=== PATIENT | male | born 1975 | race American Indian/Alaskan Native ===

== ENCOUNTER 2016-12-31 08:35 | Emergency (ER) | payer SELFPAY ==
[2016-12-31 09:09] LABS: Basophils % (Auto) 0.1 % (0.0-1.8); Eosinophils % (Auto) 0.5 % (0.0-4.3); Hematocrit 50.5 % (35.5-45.6); Hemoglobin 16.1 gm/dl (11.8-15.2); Mean Corpuscular HGB Conc 32 % (32-34); Mean Corpuscular Hemoglobin 29 pg (28-32); Mean Corpuscular Volume 91 fl (84-94); Platelet Count 187 K/mm3 (140-440); Red Blood Count 5.55 M/mm3 (3.65-5.03); Red Cell Distribution Width 14.7 % (13.2-15.2)
[2016-12-31 09:48] LABS: Alanine Aminotransferase 19 units/L (7-56); Albumin 4.4 g/dL (3.9-5); Albumin/Globulin Ratio 1.3 %; Alkaline Phosphatase 94 units/L (35-129); Anion Gap 18 mmol/L; Blood Urea Nitrogen 18 mg/dL (9-20); Calcium 9.3 mg/dL (8.4-10.2); Carbon Dioxide 25 mmol/L (22-30); Chloride 100.6 mmol/L (98-107); Glucose 109 mg/dL (75-100); Lipase 25 units/L (13-60); Potassium 3.7 mmol/L (3.6-5.0); Sodium 140 mmol/L (137-145); Total Protein 7.8 g/dL (6.3-8.2)
[2016-12-31] MEDS ORDERED: DILAUDID IM ONE (11:53)
[2016-12-31] MEDS ORDERED: NACL 0.9% 1000 ML 1,000 ML IV ONE (11:57)
[2016-12-31] MEDS ORDERED: ZOFRAN IV ONE (11:57)
--- NOTE | 2016-12-31 12:02 | Emergency Department Report ---
ED Abdominal Pain HPI - General Chief Complaint: Abdominal Pain Stated Complaint: ABD PAIN/HX OF PANCREATITIS Time Seen by Provider: 12/31/16 11:46 Source: patient Mode of arrival: Ambulatory Limitations: No Limitations - History of Present Illness Initial Comments: 41-year-old male presents to the emergency department complaining of abdominal pain. Patient states for the past 3 days he has been having upper abdominal pain with nausea and vomiting. Patient describes the pain as sharp. Pain radiates into his back. He denies fever or diarrhea. Patient reports a history of gastritis and pancreatitis, and states this feels the same. He does report that over the weekend he was drinking alcohol. Patient states he was seen at [facility] 2 days ago for the same. He states he was given IV medication and had a CT scan. He was diagnosed gastritis and given a prescription for Zofran, which he has not filled. There are no other complaints. MD Complaint: abdominal pain -: Gradual, days(s) (3) Location: epigastric Radiation: back Migration to: no migration Severity scale (0 -10): 6 Quality: sharp Consistency: constant Improves With: nothing Worsens With: nothing Associated Symptoms: nausea, vomiting - Related Data Previous Rx's Medication Instructions Recorded Last Taken Type HYDROcodone/APAP 7.5-325 [[place] 1 each PO Q6HR PRN #14 tablet 12/31/16 Unknown Rx 7.5/325] Allergies Allergy/AdvReac Type Severity Reaction Status Date / Time famotidine [From Pepcid] AdvReac ABD Verified 12/31/16 08:43 CRAMPING metoclopramide HCl AdvReac ABD Verified 12/31/16 08:43 [From Reglan] CRAMPING ranitidine HCl [From Zantac] AdvReac ABD Verified 12/31/16 08:43 CRAMPING ED Review of Systems ROS: Stated complaint: ABD PAIN/HX OF PANCREATITIS Other details as noted in HPI Comment: All other systems reviewed and negative Gastrointestinal: abdominal pain, nausea, vomiting ED Past Medical Hx - Past Medical History Previous Medical History?: Yes Hx Hypertension: Yes (NONCOMPLIANT WITH MEDS) Additional medical history: PANCREATITIS - Surgical History Past Surgical History?: No - Family History Family history: no significant - Social History Smoking Status: Current Every Day Smoker Substance Use Type: Alcohol, Marijuana - Medications Home Medications: Home Medications Medication Instructions Recorded Confirmed Last Taken Type HYDROcodone/APAP 7.5-325 [[place] 1 each PO Q6HR PRN #14 tablet 12/31/16 Unknown Rx 7.5/325] ED Physical Exam - General Limitations: No Limitations General appearance: alert, in no apparent distress - Head Head exam: Present: atraumatic, normocephalic - Eye Eye exam: Present: normal appearance, PERRL, EOMI - ENT ENT exam: Present: normal exam, normal orophraynx, mucous membranes moist - Neck Neck exam: Present: normal inspection, full ROM. Absent: tenderness - Respiratory Respiratory exam: Present: normal lung sounds bilaterally. Absent: respiratory distress - Cardiovascular Cardiovascular Exam: Present: regular rate, normal rhythm, normal heart sounds - GI/Abdominal GI/Abdominal exam: Present: soft, tenderness (mild diffuse tenderness to palpation), normal bowel sounds. Absent: distended, guarding, rebound - Extremities Exam Extremities exam: Present: normal inspection, full ROM. Absent: tenderness - Back Exam Back exam: Present: normal inspection, full ROM. Absent: tenderness - Neurological Exam Neurological exam: Present: alert, oriented X3. Absent: motor sensory deficit - Skin Skin exam: Present: warm, dry, intact ED Course Vital Signs 12/31/16 12/31/16 12/31/16 08:45 12:14 12:18 Temperature 98.7 F Pulse Rate 73 56 L Respiratory 16 16 Rate Blood Pressure 155/110 Blood Pressure 186/106 [Left] O2 Sat by Pulse 100 93 100 Oximetry 12/31/16 12/31/16 12/31/16 12:30 13:00 13:30 Temperature Pulse Rate Respiratory Rate Blood Pressure 162/104 153/114 185/110 Blood Pressure [Left] O2 Sat by Pulse 100 99 100 Oximetry 12/31/16 14:00 Temperature Pulse Rate Respiratory Rate Blood Pressure 188/123 Blood Pressure [Left] O2 Sat by Pulse 97 Oximetry ED Medical Decision Making - Lab Data Result diagrams: 12/31/16 08:54 12/31/16 08:54 - Medical Decision Making Lab results reviewed and discussed with the patient. Patient reports feeling better with medication. Patient will be discharged home at this time. - Differential Diagnosis gastritis, pancreatitis Critical care attestation.: If time is entered above; I have spent that time in minutes in the direct care of this critically ill patient, excluding procedure time. ED Disposition Clinical Impression: Alcoholic gastritis without hemorrhage Qualifiers: Chronicity: acute Qualified Code(s): K29.20 - Alcoholic gastritis without bleeding Disposition: DISCHARGED TO HOME OR SELFCARE Is pt being admited?: No Condition: Stable Instructions: Gastritis (ED) Prescriptions: HYDROcodone/APAP 7.5-325 [[place] 7.5/325] 1 each PO Q6HR PRN #14 tablet PRN Reason: Pain Referrals: MICHELLE MCKEON MD [Staff Physician] - 3-5 Days Time of Disposition: 14:34
[2016-12-31] MEDS ORDERED: DILAUDID IV ONE (13:48)
[2016-12-31 14:59] VITALS: BP 151/79
== END 2016-12-31 14:59 | disposition home or self-care (01) ==
LOC: ED 08:35
DX: K29.20 Alcoholic gastritis without bleeding (principal); I10 Essential (primary) hypertension; F17.200 Nicotine dependence, unspecified, uncomplicated; F12.10 Cannabis abuse, uncomplicated; Z88.8 Allergy status to other drugs, medicaments and biological substances
CPT/HCPCS: 36415; 80053; 83690; 85025; 96361; 96372; 96374; 96375; 99283; J1170; J2405; J7030

== ENCOUNTER 2020-08-08 12:34 | Inpatient (IN) | payer OTHER ==
[2020-08-08 13:36] LABS: Basophils % (Auto) 0.2 % (0.0-1.8); Eosinophils % (Auto) 0.2 % (0.0-4.3); Hematocrit 52.2 % (35.5-45.6); Hemoglobin 17.7 gm/dl (11.8-15.2); Lymphocytes # (Auto) 1.5 K/mm3 (1.2-5.4); Lymphocytes % (Auto) 11.2 % (13.4-35.0); Mean Corpuscular HGB Conc 34 % (32-34); Mean Corpuscular Volume 90 fl (84-94); Monocytes # (Auto) 0.5 K/mm3 (0.0-0.8); Monocytes % (Auto) 3.4 % (0.0-7.3); Platelet Count 253 K/mm3 (140-440); Red Blood Count 5.78 M/mm3 (3.65-5.03); Red Cell Distribution Width 14.9 % (13.2-15.2)
[2020-08-08] MEDS ORDERED: dilTIAZem 25 MG/5 ML INJ IV ONE (13:36)
--- NOTE | 2020-08-08 13:36 | Emergency Department Report ---
ED Chest Pain HPI - General Chief Complaint: Chest Pain Stated Complaint: CHEST PAIN; ABD PAIN; NAUSEA; VOMITING Time Seen by Provider: 08/08/20 12:47 Source: patient Mode of arrival: Ambulatory Limitations: No Limitations - History of Present Illness Initial Comments: This is a 45-year-old -[place] male who presents to the emergency department with a 2-day history of midsternal chest pain, shortness of breath, mid to upper back pain, and upper abdominal pain that he describes as a burning sensation. The patient has a history of pancreatitis and gastritis in the past. He has not taken anything for symptoms prior to presentation. He is a former smoker. He has not drink any alcohol in the past year. He has a history of hypertension but is not on any medications. He does not have a primary care physician. No recent travel or sick contacts at home. No known aggravating or alleviating factors. The patient also has been having some nausea and vomiting. The patient says that "when I start vomiting I feel short of breath." Severity scale (0 -10): 10 - Related Data Previous Rx's Medication Instructions Recorded Last Taken Type HYDROcodone/APAP 7.5-325 [[place] 1 each PO Q6HR PRN #14 tablet 12/31/16 Unknown Rx 7.5/325] Allergies Allergy/AdvReac Type Severity Reaction Status Date / Time famotidine [From Pepcid] AdvReac ABD Verified 08/08/20 12:36 CRAMPING metoclopramide HCl AdvReac ABD Verified 08/08/20 12:36 [From Reglan] CRAMPING ranitidine HCl [From Zantac] AdvReac ABD Verified 08/08/20 12:36 CRAMPING Heart Score - HEART Score History: Slightly suspicious EKG: Non-specific Age: < 45 Risk factors: 1-2 risk factors Troponin: < normal limit HEART Score: 2 - Critical Actions Critical Actions: 0-3 pts:0.9-1.7%risk of adverse cardiac event.Candidate for discharge ED Review of Systems ROS: Stated complaint: CHEST PAIN; ABD PAIN; NAUSEA; VOMITING Other details as noted in HPI Comment: All other systems reviewed and negative Constitutional: denies: chills, fever Eyes: denies: eye pain, vision change ENT: denies: ear pain, throat pain Respiratory: shortness of breath. denies: cough Cardiovascular: chest pain. denies: edema Gastrointestinal: abdominal pain, nausea, vomiting Genitourinary: denies: dysuria, discharge Musculoskeletal: denies: back pain, arthralgia Skin: denies: rash, lesions Neurological: denies: headache, weakness ED Past Medical Hx - Past Medical History Hx Hypertension: Yes (NONCOMPLIANT WITH MEDS) Additional medical history: PANCREATITIS GASRTITIS - Surgical History Past Surgical History?: No - Social History Smoking Status: Current Every Day Smoker Substance Use Type: Alcohol, Marijuana - Medications Home Medications: Home Medications Medication Instructions Recorded Confirmed Last Taken Type HYDROcodone/APAP 7.5-325 [[place] 1 each PO Q6HR PRN #14 tablet 12/31/16 Unknown Rx 7.5/325] ED Physical Exam - General Limitations: No Limitations - Other Other exam information: GENERAL: The patient is well-developed well-nourished. HENT: Normocephalic. Atraumatic. Patient has moist mucous membranes. EYES: Extraocular motions are intact. NECK: Supple. Trachea is midline. CHEST/LUNGS: Clear to auscultation. There is no respiratory distress noted. HEART/CARDIOVASCULAR: Irregular rhythm. There is moderate tachycardia. No murmur. ABDOMEN: Abdomen is soft. Unable to reproduce abdominal tenderness to palpation. No guarding. Patient has normal bowel sounds. There is no abdominal distention. SKIN: Skin is warm and dry. NEURO: The patient is awake, alert, and oriented. The patient is cooperative. The patient has no focal neurologic deficits. Normal speech. MUSCULOSKELETAL: There is no tenderness or deformity. There is no limitation range of motion. ED Course Vital Signs 08/08/20 08/08/20 12:40 13:55 Temperature 98.4 F Pulse Rate 60 178 H Respiratory 20 Rate Blood Pressure 137/95 Blood Pressure 152/60 [Right] O2 Sat by Pulse 96 Oximetry TATI score - Tati Score Age > 65: (0) No Aspirin use within the Past 7 Days: (0) No 3 or more CAD Risk Factors: (0) No 2 or more Angina events in past 24 hrs: (1) Yes Known CAD with more than 50% Stenosis: (0) No Elevated Cardiac Markers: (0) No ST Deviation Greater than 0.5mm: (0) No TATI Score: 1 ED Medical Decision Making - Lab Data Result diagrams: 08/08/20 13:15 08/08/20 13:15 - EKG Data -: EKG Interpreted by Me - EKG Data When compared to previous EKG there are: previous EKG unavailable Interpretation: other (Atrial fibrillation with a rate of 134 bpm, PVCs, normal axis, LVH. No ST elevation MN) - Radiology Data Radiology results: image reviewed interpreted by me: Chest x-ray does not show any acute process. There are no pleural effusions, obvious pneumonia and there is no pneumothorax. No significant cardiomegaly. Abdominal x-ray shows nonspecific nonobstructive bowel gas. - Medical Decision Making This patient presents to the emergency department with complaint of chest pain, upper abdominal pain, back pain, nausea with vomiting, and some occasional shortness of breath. From the EKG done through triage, the patient was found to be in atrial fibrillation with RVR and this is new onset. The patient was immediately brought back to the emergency department and placed on the monitor. He was given a dose of IV Cardizem which did help with rate control but the patient did not convert back to sinus rhythm. Chest and abdominal x-rays were done that did not show any acute processes. The patient's labs have been mostly unremarkable except for some mild thrombocytosis and mild leukocytosis. Negative first troponin. Negative D-dimer. Cardiology was contacted and consulted and saw the patient in the emergency department. The patient has been started on a heparin drip secondary to the atrial fibrillation. He has been accepted for admission by the hospitalist, Dr. Galindo. Critical Care Time: Yes Critical care time in (mins) excluding proc time.: 35 Critical care attestation.: If time is entered above; I have spent that time in minutes in the direct care of this critically ill patient, excluding procedure time. Critical care time was spent on this patient in doing his initial evaluation, multiple reevaluations, ordering and interpretation of labs and imaging, IV Cardizem for rate control, heparin drip, discussion with cardiology, and multiple discussions with the patient. Critical Care Time: 35 minutes ED Disposition Clinical Impression: New onset atrial fibrillation, Atrial fibrillation with RVR, History of gastritis, Acute chest pain Disposition: OP ADMIT IP TO THIS HOSP Is pt being admited?: Yes Condition: Serious Instructions: Chest Pain (ED) Time of Disposition: 15:59
[2020-08-08] MEDS ORDERED: ALUM-MAG HYDROXIDE-SIMETHICONE 200-200-20MG/5ML ORAL LIQD 30 ML PO ONE (13:51)
[2020-08-08] MEDS ORDERED: SODIUM CHLORIDE 0.9% 1000 ML 1,000 ML IV ONE (13:51)
[2020-08-08] MEDS ORDERED: LIDOCAINE VISCOUS 2% 15 ML ORAL LIQD PO ONE (13:51)
[2020-08-08 13:58] LABS: Alanine Aminotransferase 28 units/L (7-56); Albumin 4.5 g/dL (3.9-5); BUN/Creatinine Ratio 15; Blood Urea Nitrogen 16 mg/dL (9-20); Calcium 9.6 mg/dL (8.4-10.2); Hemolysis Index 23
[2020-08-08 14:01] LABS: INR 1.04 (0.87-1.13)
--- NOTE | 2020-08-08 14:07 | XRay Report ---
Abdominal series with chest x-ray one view HISTORY: Chest pain, abdominal pain COMPARISON: None. IMPRESSION: Single view of the chest demonstrates normal heart and mediastinal structures and clear l ungs. Supine and upright views the abdomen demonstrate scattered small air-fluid levels throughout th e abdomen suggesting gastroenteritis or mild ileus. No evidence for obstruction or free air. No patho logic calcifications. Signer Name: Henry Barnard Jr, MD Signed: 08/08/2020 2:02 PM Workstation Name: [id number]
[2020-08-08] MEDS ORDERED: HEPARIN 10,000 UNITS/10 ML VIAL IV ONE (14:12)
[2020-08-08] MEDS ORDERED: fentaNYL 100 MCG/2 ML INJ IV ONE (14:15)
[2020-08-08] MEDS ORDERED: ONDANSETRON 4 MG/2 ML INJ IV ONE (14:15)
--- NOTE | 2020-08-08 14:33 | Consultation ---
History of Present Illness Consult date: 08/08/20 Requesting physician: FADY DRAPER Consult reason: atrial fibrillation History of present illness: The pt is a 45-year-old male with a past medical history of HTN (takes amlodipine and HCTZ at home) and gastritis. He is previously unknown to our practice. He presented with c/o abdominal pain with nausea and vomiting for 3 days prior to arrival. He also states he has not had a bowel movement in 2 days. He reports some burning epigastric pain which is associated with nausea and vomiting. Following arrival to ED, he was found to be in AFib RVR and thus cardiology has been consulted. Pt was given IV cardizem bolus, HR 115-120s on evaluation, BPs elevated. Pt denies any palpitations, diaphoresis, dizziness or syncope. He admits to occasional marijuana use, denies any illicit drug use or ETOH use. He denies any known prior cardiac issues or cardiac w/u. Past History Past Medical History: hypertension, other (gastritis) Medications and Allergies Allergies Allergy/AdvReac Type Severity Reaction Status Date / Time famotidine [From Pepcid] AdvReac ABD Verified 08/08/20 12:36 CRAMPING metoclopramide HCl AdvReac ABD Verified 08/08/20 12:36 [From Reglan] CRAMPING ranitidine HCl [From Zantac] AdvReac ABD Verified 08/08/20 12:36 CRAMPING Home Medications Medication Instructions Recorded Confirmed Last Taken Type HYDROcodone/APAP 7.5-325 [[place] 1 each PO Q6HR PRN #14 tablet 12/31/16 Unknown Rx 7.5/325] Active Meds: Active Medications Sodium Chloride (Nacl 0.9% 1000 Ml) 1,000 mls @ 125 mls/hr IV ONCE ONE Stop: 08/08/20 21:50 Last Admin: 08/08/20 13:57 Dose: 125 mls/hr Documented by: Review of Systems Constitutional: no weight loss, no weight gain, no fever, no chills, no sweats Ears, nose, mouth and throat: no ear pain, no nose pain, no sinus pressure, no sinus pain Cardiovascular: chest pain, high blood pressure, no orthopnea, no palpitations, no rapid/irregular heart beat, no edema, no syncope, no lightheadedness, no shortness of breath, no dyspnea on exertion Respiratory: no cough, no shortness of breath, no dyspnea on exertion, no congestion, no wheezing, no pain on inspiration Gastrointestinal: abdominal pain, nausea, vomiting, constipation, no diarrhea, no hematemesis, no coffee ground emesis Genitourinary Male: no dysuria, no hematuria, no flank pain, no discharge, no urinary frequency, no urinary hesitancy Musculoskeletal: no neck stiffness, no neck pain, no shooting arm pain, no arm numbness/tingling, no low back pain, no shooting leg pain Integumentary: no rash, no pruritis, no redness, no sores, no wounds Neurological: no head injury, no paralysis, no weakness, no parathesias, no numbness, no tingling, no seizures, no syncope Psychiatric: no anxiety Endocrine: no cold intolerance, no heat intolerance Hematologic/Lymphatic: no easy bruising, no easy bleeding Allergic/Immunologic: no urticaria Physical Examination Vital Signs Temp Pulse Resp BP Pulse Ox 98.4 F 60 20 152/60 96 08/08/20 12:40 08/08/20 12:40 08/08/20 12:40 08/08/20 12:40 08/08/20 12:40 General appearance: no acute distress HEENT: Positive: PERRL, Normocephaly, Mucus Membranes Moist Neck: Positive: neck supple, trachea midline Cardiac: Positive: irregularly irregular, S1/S2, Tachycardia Lungs: Positive: Decreased Breath Sounds Neuro: Positive: Grossly Intact Abdomen: Positive: Active Bowel Sounds Skin: Negative: Rash Musculoskeletal: No Pain Extremities: Absent: edema Results 08/08/20 13:15 08/08/20 13:15 Cardiac Enzymes 08/08/20 Range/Units 13:15 AST 17 (5-40) units/L Coagulation 08/08/20 Range/Units 13:15 PT 13.5 (12.2-14.9) Sec. INR 1.04 (0.87-1.13) CBC 08/08/20 Range/Units 13:15 WBC 13.4 H (4.5-11.0) K/mm3 RBC 5.78 H (3.65-5.03) M/mm3 Hgb 17.7 H (11.8-15.2) gm/dl Hct 52.2 H (35.5-45.6) % Plt Count 253 (140-440) K/mm3 Lymph # (Auto) 1.5 (1.2-5.4) K/mm3 [place] # (Auto) 0.5 (0.0-0.8) K/mm3 Eos # (Auto) 0.0 (0.0-0.4) K/mm3 Baso # (Auto) 0.0 (0.0-0.1) K/mm3 Comprehensive Metabolic Panel 08/08/20 Range/Units 13:15 Sodium 136 L (137-145) mmol/L Potassium 3.8 (3.6-5.0) mmol/L Chloride 97.5 L (98-107) mmol/L Carbon Dioxide 25 (22-30) mmol/L BUN 16 (9-20) mg/dL Creatinine 1.1 (0.8-1.3) mg/dL Glucose 165 H (75-100) mg/dL Calcium 9.6 (8.4-10.2) mg/dL AST 17 (5-40) units/L ALT 28 (7-56) units/L Alkaline Phosphatase 103 (35-129) units/L Total Protein 7.6 (6.3-8.2) g/dL Albumin 4.5 (3.9-5) g/dL - Imaging and Cardiology Echo: pending EKG: report reviewed, image reviewed EKG interpretations - Telemetry EKG Rhythm: Atrial Fibrillation - EKG Supraventricular dysrhythmia: atrial fibrillation Assessment and Plan Pt presents with apparent new onset AFib RVR. Labwork unremarkable thus far, DDimer WNL, TSH WNL. HR improving s/p IV cardizem bolus. Initiate PO cardizem - if pt unable to tolerate PO meds due to n/v then recommend initiation of cardizem gtt for HR optimization. Cont Eliquis per primary team. Obtain tte. Management of n/v per primary team. Will follow. The patient has been seen in conjunction with Dr. Aubrey Buitrago who agrees with the - Patient Problems (1) Atrial fibrillation with RVR Current Visit: Yes Status: Acute (2) HTN (hypertension) Current Visit: Yes Status: Chronic (3) Nausea and vomiting Current Visit: Yes Status: Acute (4) History of gastritis Current Visit: Yes Status: Chronic
[2020-08-08] MEDS ORDERED: ALBUTEROL 2.5 MG/3 ML NEBU IH PRN (14:47)
[2020-08-08] MEDS ORDERED: ACETAMINOPHEN 325 MG TAB PO PRN (14:47)
--- NOTE | 2020-08-08 14:47 | History and Physical Report ---
History of Present Illness Chief complaint: My chest is burning History of present illness: 45 YO Male with HTN, GERD, Nicotine Dependence presents to ED for evaluation. Patient reports that he has experienced chest discomfort over the past 1 day with persistently worsening symptoms over the same timeframe. Patient knowledges "feeling like his heart is beating fast". Patient also acknowledges a burning sensation in the area localized by the patient as the epigastric area over the past 2 days. Patient acknowledges concomitant nausea, as well as several episodes of vomiting. Patient transported to [facility] via private vehicle for further care and evaluation of the aforementioned symptoms. Patient seen and evaluated in the emergency department. All lab and imaging studies reviewed. Patient underwent routine EKG and was found to have atrial fibrillation complicated by rapid ventricular response with a heart rate in the 120s. Patient treated with Cardizem bolus with decrease in heart rate to around 100 bpm. Patient admitted to telemetry due to increased risk of worsening symptoms and initiated on therapeutic anticoagulation. Cardiology team consulted in ED. Patient found to have a [id number] score:1. Patient denies fever, chills, chest pain, productive cough, skin rash, recent ill contacts, i ngestion of [id number] supplements, herbal medications, or known ill contacts, or known exposure to COVID-19. All medication listed at time of admission has been reconciled. No prior admission for review. Past History Past Medical History: hypertension, other (gastritis) Past Surgical History: No surgical history, Other (Reviewed) Social history: smoking Family history: hypertension Medications and Allergies Allergies Allergy/AdvReac Type Severity Reaction Status Date / Time famotidine [From Pepcid] AdvReac ABD Verified 08/08/20 12:36 CRAMPING metoclopramide HCl AdvReac ABD Verified 08/08/20 12:36 [From Reglan] CRAMPING ranitidine HCl [From Zantac] AdvReac ABD Verified 08/08/20 12:36 CRAMPING Home Medications Medication Instructions Recorded Confirmed Last Taken Type HYDROcodone/APAP 7.5-325 [[place] 1 each PO Q6HR PRN #14 tablet 12/31/16 Unknown Rx 7.5/325] Active Meds: Active Medications Apixaban (Apixaban 5 Mg Tab) 5 mg PO Q12HR [facility]; Protocol Stop: 08/10/20 23:59 Diltiazem HCl (Diltiazem 90 Mg Tab) 90 mg PO Q6H SCOTT Sodium Chloride (Nacl 0.9% 1000 Ml) 1,000 mls @ 125 mls/hr IV ONCE ONE Stop: 08/08/20 21:50 Last Admin: 08/08/20 13:57 Dose: 125 mls/hr Documented by: Review of Systems Constitutional: no weight loss, no weight gain, no fever, no chills Ears, nose, mouth and throat: no ear pain, no ear discharge, no tinnitis, no nasal congestion, no nasal discharge Cardiovascular: palpitations, no chest pain, no edema, no syncope Respiratory: no cough, no cough with sputum, no excessive sputum, no hemoptysis Gastrointestinal: nausea, vomiting, no abdominal pain, no diarrhea, no change in bowel habits, no BRBPR, no melena, no hematochezia Genitourinary Male: no hematuria, no flank pain, no discharge, no urinary frequency, no urinary hesitancy Rectal: no pain, no incontinence, no bleeding Musculoskeletal: no neck stiffness, no neck pain, no shooting arm pain, no arm numbness/tingling, no low back pain, no shooting leg pain Integumentary: no rash, no pruritis, no redness, no sores, no wounds Neurological: no transient paralysis, no paralysis, no weakness, no numbness, no tingling Psychiatric: no anxiety, no memory loss, no change in sleep habits, no sleep disturbances, no hypersomnia, no change in libido, no disorientation Endocrine: no cold intolerance, no heat intolerance, no excessive thirst, no polyuria, no nocturia, no excessive sweating, no flushing Hematologic/Lymphatic: no easy bruising, no easy bleeding Allergic/Immunologic: no urticaria, no allergic rhinitis Exam - Constitutional Vitals: Temp Pulse Resp BP Pulse Ox 98.4 F 178 H 20 137/95 96 08/08/20 12:40 08/08/20 13:55 08/08/20 12:40 08/08/20 13:55 08/08/20 12:40 General appearance: Present: mild distress - EENT Eyes: Present: PERRL ENT: hearing intact, clear oral mucosa - Neck Neck: Present: supple, normal ROM - Respiratory Respiratory effort: normal Respiratory: bilateral: CTA - Cardiovascular Rhythm: other (Tachycardia) Heart Sounds: Present: S1 & S2. Absent: rub, click - Extremities Extremities: pulses symmetrical, No edema Peripheral Pulses: within normal limits - Abdominal General gastrointestinal: Present: soft, non-tender, non-distended, normal bowel sounds Male genitourinary: Present: normal - Integumentary Integumentary: Present: clear, warm, dry - Musculoskeletal Musculoskeletal: gait normal, strength equal bilaterally - Psychiatric Psychiatric: appropriate mood/affect, intact judgment & insight - Neurologic Neurologic: CNII-XII intact, moves all extremities HEART Score - HEART Score Troponin: WBC 13.4 K/mm3 (4.5-11.0) H 08/08/20 13:15 RBC 5.78 M/mm3 (3.65-5.03) H 08/08/20 13:15 Hgb 17.7 gm/dl (11.8-15.2) H 08/08/20 13:15 Hct 52.2 % (35.5-45.6) H 08/08/20 13:15 MCV 90 fl (84-94) 08/08/20 13:15 MCH 31 pg (28-32) 08/08/20 13:15 MCHC 34 % (32-34) 08/08/20 13:15 RDW 14.9 % (13.2-15.2) 08/08/20 13:15 Plt Count 253 K/mm3 (140-440) 08/08/20 13:15 Lymph % (Auto) 11.2 % (13.4-35.0) L 08/08/20 13:15 [place] % (Auto) 3.4 % (0.0-7.3) 08/08/20 13:15 Eos % (Auto) 0.2 % (0.0-4.3) 08/08/20 13:15 Baso % (Auto) 0.2 % (0.0-1.8) 08/08/20 13:15 Lymph # (Auto) 1.5 K/mm3 (1.2-5.4) 08/08/20 13:15 [place] # (Auto) 0.5 K/mm3 (0.0-0.8) 08/08/20 13:15 Eos # (Auto) 0.0 K/mm3 (0.0-0.4) 08/08/20 13:15 Baso # (Auto) 0.0 K/mm3 (0.0-0.1) 08/08/20 13:15 Seg Neutrophils % 85.0 % (40.0-70.0) H 08/08/20 13:15 Seg Neutrophils # 11.4 K/mm3 (1.8-7.7) H 08/08/20 13:15 PT 13.5 Sec. (12.2-14.9) 08/08/20 13:15 INR 1.04 (0.87-1.13) 08/08/20 13:15 D-Dimer < 135.00 ng/mlDDU (0-234) 08/08/20 Unknown Sodium 136 mmol/L (137-145) L 08/08/20 13:15 Potassium 3.8 mmol/L (3.6-5.0) 08/08/20 13:15 Chloride 97.5 mmol/L (98-107) L 08/08/20 13:15 Carbon Dioxide 25 mmol/L (22-30) 08/08/20 13:15 Anion Gap 17 mmol/L 08/08/20 13:15 BUN 16 mg/dL (9-20) 08/08/20 13:15 Creatinine 1.1 mg/dL (0.8-1.3) 08/08/20 13:15 Estimated GFR > 60 ml/min 08/08/20 13:15 BUN/Creatinine Ratio 15 % 08/08/20 13:15 Glucose 165 mg/dL (75-100) H 08/08/20 13:15 Calcium 9.6 mg/dL (8.4-10.2) 08/08/20 13:15 Total Bilirubin 0.90 mg/dL (0.1-1.2) 08/08/20 13:15 AST 17 units/L (5-40) 08/08/20 13:15 ALT 28 units/L (7-56) 08/08/20 13:15 Alkaline Phosphatase 103 units/L (35-129) 08/08/20 13:15 Troponin T < 0.010 ng/mL (0.00-0.029) 08/08/20 13:15 Total Protein 7.6 g/dL (6.3-8.2) 08/08/20 13:15 Albumin 4.5 g/dL (3.9-5) 08/08/20 13:15 Albumin/Globulin Ratio 1.5 % 08/08/20 13:15 TSH 1.120 mlU/mL (0.270-4.200) 08/08/20 13:15 Results - Labs CBC & Chem 7: 08/08/20 13:15 08/08/20 13:15 Labs: Abnormal lab results 08/08/20 08/08/20 Range/Units 13:15 13:15 WBC 13.4 H (4.5-11.0) K/mm3 RBC 5.78 H (3.65-5.03) M/mm3 Hgb 17.7 H (11.8-15.2) gm/dl Hct 52.2 H (35.5-45.6) % Lymph % (Auto) 11.2 L (13.4-35.0) % Seg Neutrophils % 85.0 H (40.0-70.0) % Seg Neutrophils # 11.4 H (1.8-7.7) K/mm3 Sodium 136 L (137-145) mmol/L Chloride 97.5 L (98-107) mmol/L Glucose 165 H (75-100) mg/dL Assessment and Plan - Patient Problems (1) Atrial fibrillation with RVR Current Visit: Yes Status: Acute Plan to address problem: Cardiology team consulted in ED, patient treated with Cardizem bolus with n ormalization of heart rate, patient initiated on therapeutic anticoagulation with Eliquis, further care and evaluation as per cardiology team. Echocardiogram ordered and is pending at time of admission. Urine drug screen pending at time of admission. (2) Gastroesophageal reflux disease Current Visit: Yes Status: Acute Plan to address problem: PPI therapy, supportive care. (3) HTN (hypertension) Current Visit: Yes Status: Chronic Qualifiers: Hypertension type: essential hypertension Qualified Code(s): I10 - Essential (primary) hypertension Plan to address problem: Monitor blood pressure every shift, continue medical management. (4) DVT prophylaxis Current Visit: Yes Status: Acute Plan to address problem: SCD to bilateral lower extremities while in bed, continue therapeutic anticoagulation.
[2020-08-08] MEDS ORDERED: HEPARIN/ 0.45% NACL DRIP 25,000 UNIT/500 ML BAG IV SCH (15:00)
[2020-08-08 16:28] LABS: Amphetamine Screen,Urine Negative; Benzodiazepines Screen,Urine Negative; Cocaine Screen,Urine Negative; Methadone Screen,Urine Negative; Opiate Screen,Urine Negative
[2020-08-08 16:39] LABS: Cannabinoid Screen,Urine Positive
[2020-08-08] MEDS: MORPHINE 4 MG/1 ML INJ IV PRN ×2 (17:08→21:20)
[2020-08-08] MEDS: ONDANSETRON 4 MG/2 ML INJ IV PRN (20:07)
[2020-08-08] MEDS: APIXABAN 5 MG TAB PO SCH (21:38)
[2020-08-09] MEDS: MORPHINE 4 MG/1 ML INJ IV PRN ×6 (01:27→21:51)
[2020-08-09] MEDS: ONDANSETRON 4 MG/2 ML INJ IV PRN ×3 (04:58→20:10)
--- NOTE | 2020-08-09 09:37 | Progress Note ---
Assessment and Plan Assessment and plan: Atrial fibrillation with RVR. Cardiology consultation pending. Continue Cardizem and Eliquis per cardiology. Follow-up echocardiogram. Check TSH. Hypertension. Continue antihypertensive medications. Abdominal pain/N/V. Check CT scan of the abdomen for further evaluation. Consider GI consultation. Etiology likely secondary to gastritis. PPI daily History Interval history: No new issues overnight. Hospitalist Physical - Constitutional Vitals: Temp Pulse Resp BP Pulse Ox 99.7 F H 60 18 123/73 97 08/09/20 08:00 08/09/20 08:26 08/09/20 08:00 08/09/20 08:26 08/09/20 08:00 General appearance: Present: no acute distress - EENT Eyes: Present: PERRL, EOM intact ENT: hearing intact, clear oral mucosa, dentition normal - Neck Neck: Present: supple, normal ROM - Respiratory Respiratory effort: normal Respiratory: bilateral: CTA - Cardiovascular Rhythm: regular Heart Sounds: Present: S1 & S2. Absent: gallop, rub - Extremities Extremities: no ischemia, No edema, Full ROM - Abdominal General gastrointestinal: soft, non-tender, non-distended, normal bowel sounds - Integumentary Integumentary: Present: clear, warm, dry - Neurologic Neurologic: CNII-XII intact, moves all extremities HEART Score - HEART Score EKG: Non-specific Age: < 45 Risk factors: 1-2 risk factors Troponin: Troponin T < 0.010 ng/mL (0.00-0.029) 08/08/20 21:19 Troponin: < normal limit - Critical Actions Critical Actions: 0-3 pts:0.9-1.7%risk of adverse cardiac event.Candidate for discharge Results - Labs CBC & Chem 7: 08/08/20 13:15 08/08/20 13:15 Labs: Laboratory Last Values WBC 13.4 K/mm3 (4.5-11.0) H 08/08/20 13:15 RBC 5.78 M/mm3 (3.65-5.03) H 08/08/20 13:15 Hgb 17.7 gm/dl (11.8-15.2) H 08/08/20 13:15 Hct 52.2 % (35.5-45.6) H 08/08/20 13:15 MCV 90 fl (84-94) 08/08/20 13:15 MCH 31 pg (28-32) 08/08/20 13:15 MCHC 34 % (32-34) 08/08/20 13:15 RDW 14.9 % (13.2-15.2) 08/08/20 13:15 Plt Count 253 K/mm3 (140-440) 08/08/20 13:15 Lymph % (Auto) 11.2 % (13.4-35.0) L 08/08/20 13:15 [place] % (Auto) 3.4 % (0.0-7.3) 08/08/20 13:15 Eos % (Auto) 0.2 % (0.0-4.3) 08/08/20 13:15 Baso % (Auto) 0.2 % (0.0-1.8) 08/08/20 13:15 Lymph # (Auto) 1.5 K/mm3 (1.2-5.4) 08/08/20 13:15 [place] # (Auto) 0.5 K/mm3 (0.0-0.8) 08/08/20 13:15 Eos # (Auto) 0.0 K/mm3 (0.0-0.4) 08/08/20 13:15 Baso # (Auto) 0.0 K/mm3 (0.0-0.1) 08/08/20 13:15 Seg Neutrophils % 85.0 % (40.0-70.0) H 08/08/20 13:15 Seg Neutrophils # 11.4 K/mm3 (1.8-7.7) H 08/08/20 13:15 PT 13.5 Sec. (12.2-14.9) 08/08/20 13:15 INR 1.04 (0.87-1.13) 08/08/20 13:15 D-Dimer < 135.00 ng/mlDDU (0-234) 08/08/20 Unknown Sodium 136 mmol/L (137-145) L 08/08/20 13:15 Potassium 3.8 mmol/L (3.6-5.0) 08/08/20 13:15 Chloride 97.5 mmol/L (98-107) L 08/08/20 13:15 Carbon Dioxide 25 mmol/L (22-30) 08/08/20 13:15 Anion Gap 17 mmol/L 08/08/20 13:15 BUN 16 mg/dL (9-20) 08/08/20 13:15 Creatinine 1.1 mg/dL (0.8-1.3) 08/08/20 13:15 Estimated GFR > 60 ml/min 08/08/20 13:15 BUN/Creatinine Ratio 15 % 08/08/20 13:15 Glucose 165 mg/dL (75-100) H 08/08/20 13:15 Calcium 9.6 mg/dL (8.4-10.2) 08/08/20 13:15 Total Bilirubin 0.90 mg/dL (0.1-1.2) 08/08/20 13:15 AST 17 units/L (5-40) 08/08/20 13:15 ALT 28 units/L (7-56) 08/08/20 13:15 Alkaline Phosphatase 103 units/L (35-129) 08/08/20 13:15 Troponin T < 0.010 ng/mL (0.00-0.029) 08/08/20 21:19 Total Protein 7.6 g/dL (6.3-8.2) 08/08/20 13:15 Albumin 4.5 g/dL (3.9-5) 08/08/20 13:15 Albumin/Globulin Ratio 1.5 % 08/08/20 13:15 TSH 1.120 mlU/mL (0.270-4.200) 08/08/20 13:15 Urine Opiates Screen Negative 08/08/20 15:19 Urine Methadone Screen Negative 08/08/20 15:19 Ur Barbiturates Screen Negative 08/08/20 15:19 Ur Phencyclidine Scrn Negative 08/08/20 15:19 Ur Amphetamines Screen Negative 08/08/20 15:19 U Benzodiazepines Scrn Negative 08/08/20 15:19 Urine Cocaine Screen Negative 08/08/20 15:19 U Marijuana (THC) Screen Positive 08/08/20 15:19 Drugs of Abuse Note Disclamer 08/08/20 15:19 Peña/IV: Voiding Method Toilet IV Catheter Type [Right Upper Peripheral IV arm] IV Catheter Type [Right Wrist] Peripheral IV Active Medications - Current Medications Current Medications: Generic Name Dose Route Start Last Admin Trade Name Freq PRN Reason Stop Dose Admin Acetaminophen 650 mg 08/08/20 14:47 Acetaminophen 325 Mg Tab PO Q4H PRN Pain MILD(1-3)/Fever >100.5/CROSS Albuterol 2.5 mg 08/08/20 14:47 Albuterol 2.5 Mg/3 Ml Nebu IH Q4HRT PRN Shortness Of Breath Apixaban 5 mg 08/08/20 22:00 08/08/20 21:38 Apixaban 5 Mg Tab PO 08/10/20 23:59 5 mg Q12HR SCOTT Administration Protocol Diltiazem HCl 90 mg 08/08/20 14:35 08/09/20 08:26 Diltiazem 90 Mg Tab PO 90 mg Q6H SCOTT Administration Morphine Sulfate 4 mg 08/08/20 16:53 08/09/20 05:58 Morphine 4 Mg/1 Ml Inj IV 4 mg Q4H PRN Administration Pain , Severe (7-10) Ondansetron HCl 4 mg 08/08/20 14:47 08/09/20 04:58 Ondansetron 4 Mg/2 Ml Inj IV 4 mg Q8H PRN Administration Nausea And Vomiting Sodium Chloride 10 ml 08/08/20 22:00 08/08/20 21:38 Sodium Chloride 0.9% 10 Ml Flush Syringe IV 10 ml BID SCOTT Administration Sodium Chloride 10 ml 08/08/20 14:47 08/09/20 01:27 Sodium Chloride 0.9% 10 Ml Flush Syringe IV 10 ml PRN PRN Administration LINE FLUSH
[2020-08-09] MEDS: APIXABAN 5 MG TAB PO SCH ×2 (09:42→21:04)
--- NOTE | 2020-08-09 10:10 | Cat Scan Report ---
CT ABDOMEN AND PELVIS WITHOUT CONTRAST HISTORY: abd pain, n/v COMPARISON: Abdominal series performed yesterday TECHNIQUE: Axial CT images were obtained through the abdomen and pelvis without IV contrast. Sagittal and coronal reformatted images. All CT scans at this location are performed using CT dose reduction for ALARA by means of automated exposure control. FINDINGS: CT ABDOMEN: Lung Bases: Clear. Liver: No significant abnormality. Biliary: No significant abnormality. Spleen: No significant abnormality. Unenlarged. Pancreas: No significant abnormality. Adrenals: No significant abnormality. Kidneys: Bilateral nephrolithiasis is identified. There are 2 small stones at the inferior pole of th e right kidney measuring up to 3 mm. There are approximately 5 or 6 stones scattered throughout the l eft kidney measuring up to 3 mm. No ureteral stones or hydronephrosis. 1 cm cyst is suspected at the superior pole of the left kidney. Lymphatics: No lymphadenopathy. Vasculature: No significant abnormality. Bowel/Peritoneum: No significant abnormality. No free air. No free fluid. Normal appendix. CT PELVIS: : No significant abnormality. Osseous Structures: No significant abnormality. Additional Findings: None IMPRESSION: Bilateral nephrolithiasis, left greater than right. No hydronephrosis. Signer Name: Henry Barnard Jr, MD Signed: 08/09/2020 10:06 AM Workstation Name: [id number]
--- NOTE | 2020-08-09 11:02 | Progress Note ---
Assessment and Plan preliminary tte images show normal EF, no significant abnormalities. Currently stable cardiac status. Pt may discharge from cardiology standpoint. At discharge, recommend Cardizem CD 240mg daily and cont Eliquis. Will plan for stress testing as OP as pt has no prior ischemic evaluation on record. Recommend follow up in our office with Dr. Aubrey Buitrago within 2 weeks ([phone]). The patient has been seen in conjunction with Dr. Aubrey Buitrago who agrees with the - Patient Problems (1) Atrial fibrillation with RVR Current Visit: Yes Status: Acute (2) HTN (hypertension) Current Visit: Yes Status: Chronic Qualifiers: Hypertension type: essential hypertension Qualified Code(s): I10 - Essential (primary) hypertension (3) Nausea and vomiting Current Visit: Yes Status: Acute (4) History of gastritis Current Visit: Yes Status: Chronic Subjective Date of service: 08/09/20 Principal diagnosis: AFib Interval history: NAD. tele reviewed - in AFib HR 70s. Objective Last Vital Signs Temp 99.7 F H 08/09/20 08:00 Pulse 89 08/09/20 09:01 Resp 19 08/09/20 09:01 BP 123/73 08/09/20 08:26 Pulse Ox 97 08/09/20 08:00 - Physical Examination General: No Apparent Distress HEENT: Positive: PERRL, Normocephaly, Mucus Membranes Moist Neck: Positive: neck supple, trachea midline Cardiac: Positive: irregularly irregular, S1/S2 Lungs: Positive: Decreased Breath Sounds Neuro: Positive: Grossly Intact Abdomen: Positive: Active Bowel Sounds Skin: Negative: Rash Musculoskeletal: No Pain Extremities: Absent: edema - Labs and Meds Cardiac Enzymes 08/08/20 Range/Units 13:15 AST 17 (5-40) units/L Coagulation 08/08/20 Range/Units 13:15 PT 13.5 (12.2-14.9) Sec. INR 1.04 (0.87-1.13) CBC 08/08/20 Range/Units 13:15 WBC 13.4 H (4.5-11.0) K/mm3 RBC 5.78 H (3.65-5.03) M/mm3 Hgb 17.7 H (11.8-15.2) gm/dl Hct 52.2 H (35.5-45.6) % Plt Count 253 (140-440) K/mm3 Lymph # (Auto) 1.5 (1.2-5.4) K/mm3 [place] # (Auto) 0.5 (0.0-0.8) K/mm3 Eos # (Auto) 0.0 (0.0-0.4) K/mm3 Baso # (Auto) 0.0 (0.0-0.1) K/mm3 Comprehensive Metabolic Panel 08/08/20 Range/Units 13:15 Sodium 136 L (137-145) mmol/L Potassium 3.8 (3.6-5.0) mmol/L Chloride 97.5 L (98-107) mmol/L Carbon Dioxide 25 (22-30) mmol/L BUN 16 (9-20) mg/dL Creatinine 1.1 (0.8-1.3) mg/dL Glucose 165 H (75-100) mg/dL Calcium 9.6 (8.4-10.2) mg/dL AST 17 (5-40) units/L ALT 28 (7-56) units/L Alkaline Phosphatase 103 (35-129) units/L Total Protein 7.6 (6.3-8.2) g/dL Albumin 4.5 (3.9-5) g/dL - Imaging and Cardiology EKG: report reviewed, image reviewed Echo: pending - Telemetry EKG Rhythm: Atrial Fibrillation
[2020-08-10] MEDS: MORPHINE 4 MG/1 ML INJ IV PRN (02:41)
[2020-08-10] MEDS: ONDANSETRON 4 MG/2 ML INJ IV PRN (03:31)
[2020-08-10 06:37] LABS: Hematocrit 48.1 % (35.5-45.6); Hemoglobin 15.8 gm/dl (11.8-15.2)
[2020-08-10 08:37] VITALS: BP 168/103
--- NOTE | 2020-08-10 09:22 | Discharge Summary ---
Providers - Providers Date of Admission: 08/08/20 14:47 Date of discharge: 08/10/20 Attending physician: LUAN NGUYEN 08/08/20 14:19 Consult to Cardiology [CONS] Routine Consulting Provider: SATHYA ROACH Reason For Exam: new onset a-fib with RVR Primary care physician: [employer] Hospitalization Reason for admission: afib Condition: Serious Hospital course: The pt is a 45-year-old male with a past medical history of HTN (takes amlodipine and HCTZ at home) and gastritis who presented with c/o abdominal pain with nausea and vomiting for 3 days prior to arrival. He also states he has not had a bowel movement in 2 days. He reports some burning epigastric pain which is associated with nausea and vomiting. Following arrival to ED, he was found to be in AFib RVR and thus cardiology was consulted. Pt was given IV cardizem bolus, HR 115-120s on evaluation, BPs elevated. The patient was admitted with diagnosis of atrial fibrillation with RVR, accelerated hypertension, abdominal pain and nausea and vomiting. Cardiology recommended echocardiogram which showed normal EF and no significant abnormalities. Cardiology recommended Cardizem 240 mg daily. With regards to the abdominal pain patient was found to have nephrolithiasis without hydronephrosis. Therefore, nausea vomiting may be secondary to passed kidney stone versus history of gastritis. No other acute findings. Patient will discharge with Protonix. Follow-up with urology as an outpatient. Dedicated discharge time 35 minutes. Disposition: - TO HOME OR SELFCARE Time spent for discharge: 35 - Discharge Diagnoses (1) Nephrolithiasis Status: Acute (2) Atrial fibrillation with RVR Status: Acute (3) Gastroesophageal reflux disease Status: Acute (4) Nausea and vomiting Status: Acute (5) New onset atrial fibrillation Status: Acute (6) HTN (hypertension) Status: Chronic Qualifiers: Hypertension type: essential hypertension Qualified Code(s): I10 - Essential (primary) hypertension (7) History of gastritis Status: Chronic Core Measure Documentation - Palliative Care Palliative Care/ Comfort Measures: Not Applicable - Core Measures Any of the following diagnoses?: none Exam - Constitutional Vitals: Temp Pulse Resp BP Pulse Ox 98.8 F 73 18 168/103 100 08/10/20 08:37 08/10/20 08:37 08/10/20 08:37 08/10/20 08:37 08/10/20 08:37 General appearance: Present: no acute distress, well-nourished - EENT Eyes: Present: PERRL ENT: hearing intact, clear oral mucosa - Neck Neck: Present: supple, normal ROM - Respiratory Respiratory effort: normal Respiratory: bilateral: CTA - Cardiovascular Heart Sounds: Present: S1 & S2. Absent: rub, click - Extremities Extremities: pulses symmetrical, No edema Peripheral Pulses: within normal limits - Abdominal General gastrointestinal: Present: soft, non-tender, non-distended, normal bowel sounds Male genitourinary: Present: normal - Integumentary Integumentary: Present: clear, warm, dry - Musculoskeletal Musculoskeletal: gait normal, strength equal bilaterally - Psychiatric Psychiatric: appropriate mood/affect, intact judgment & insight - Neurologic Neurologic: CNII-XII intact, moves all extremities Plan Activity: advance as tolerated Weight Bearing Status: Weight Bear as Tolerated Diet: regular Follow up with: PRIMARY CARE, [Primary Care Provider] - 3-5 Days CHIOMA POLLACK MD [Staff Physician] - 7 Days Prescriptions: dilTIAZem CD [Cardizem Cd] 240 mg PO QDAY #30 cap Apixaban [Eliquis] 5 mg PO Q12HR #60 tablet Pantoprazole [Protonix] 40 mg PO QDAY #30 tablet
[2020-08-10] MEDS: APIXABAN 5 MG TAB PO SCH (10:11)
--- NOTE | 2020-08-10 10:48 | Progress Note ---
Assessment and Plan 45-year-old male with hypertension has proximal atrial fibrillation continue Cardizem and will continue Eliquis and determine long-term oral anticoagulation as an outpatient discussed this with the patient - Patient Problems (1) New onset atrial fibrillation Current Visit: Yes Status: Acute Plan to address problem: Proximal convert back to sinus rhythm (2) HTN (hypertension) Current Visit: Yes Status: Chronic Qualifiers: Hypertension type: essential hypertension Qualified Code(s): I10 - Essential (primary) hypertension Subjective Date of service: 08/10/20 Principal diagnosis: AFib Interval history: no palpations and no cp and abd pain is gone Objective Vital Signs Temp Pulse Resp BP BP Pulse Ox 08/10/20 10:00 66 08/10/20 08:37 98.8 F 73 18 168/103 100 08/10/20 03:35 97.8 F 66 16 153/100 99 08/10/20 00:31 65 08/10/20 00:29 97.8 F 16 139/93 08/09/20 22:00 95 08/09/20 21:15 99.1 F 71 16 145/92 95 08/09/20 19:39 75 08/09/20 17:00 73 08/09/20 16:09 98.3 F 57 L 18 138/84 100 08/09/20 13:35 82 131/67 08/09/20 12:00 98.2 F 64 18 133/90 98 - Physical Examination General: No Apparent Distress HEENT: Positive: PERRL, Normocephaly, Mucus Membranes Moist Neck: Positive: neck supple, trachea midline Cardiac: Positive: Reg Rate and Rhythm Lungs: Positive: clear to auscultation Neuro: Positive: Grossly Intact Abdomen: Positive: Active Bowel Sounds Skin: Negative: Rash Musculoskeletal: No Pain Extremities: Absent: edema - Labs and Meds CBC 08/10/20 Range/Units 05:19 Hgb 15.8 H (11.8-15.2) gm/dl Hct 48.1 H (35.5-45.6) % Plt Count 184 (140-440) K/mm3 - Imaging and Cardiology EKG: report reviewed, image reviewed Echo: report reviewed (normal lv funciton normal left atrium , no significant regurgitation) - Telemetry EKG Rhythm: Sinus Rhythm (Patient converted into sinus rhythm since August 09)
== END 2020-08-10 12:30 | disposition home or self-care (01) | DRG 310 ==
LOC: ED 12:34 → 3A 14:47 → OBSVTOIN 14:47 → 4A 15:57
PROVIDERS: ADMIT Internal Medicine; ATTEND Hospitalist
DX: I48.0 Paroxysmal atrial fibrillation (principal); K21.9 Gastro-esophageal reflux disease without esophagitis; I10 Essential (primary) hypertension; N20.0 Calculus of kidney; Z79.899 Other long term (current) drug therapy; Z82.49 Family history of ischemic heart disease and other diseases of the circulatory system
CPT/HCPCS: 36415; 74022; 74176; 80053; 80307; 84443; 84484; 85014; 85018; 85025; 85049; 85379; 85610; 93005; 93306; 96361; 96374; 96375; 96376; 99291; G0378; J1644; J2270; J2405; J3010; J7030

== ENCOUNTER 2020-09-03 10:44 | Emergency (ER) | payer SELFPAY ==
[2020-09-03 11:01] VITALS: BP 140/111
[2020-09-03] MEDS ORDERED: IPRATROPIUM/ALBUTEROL SULFATE 3 ML AMPUL.NEB IH ONE (11:12)
[2020-09-03] MEDS ORDERED: predniSONE 20 MG TAB PO ONE (11:22)
--- NOTE | 2020-09-03 11:23 | Emergency Department Report ---
ED General Adult HPI - General Chief complaint: Adult Asthma Stated complaint: ASTHMA/YANCI Time Seen by Provider: 09/03/20 10:59 Source: patient Mode of arrival: Ambulatory Limitations: No Limitations - History of Present Illness Initial comments: This is a 45-year old man with a history of hypertension. He states he was admitted to [facility] about a year ago and diagnosed with asthma. He was given a Ventolin inhaler at that time. It appears that he has not followed up with a primary care provider for some time. His Ventolin inhaler is at 0. He states he has been out of his medicine for some time. He has been coughing but does not believe he has had any Covid exposure. He has rare sputum which is a bit yellow. He does not complain of chest pain and has had no hemoptysis. He does not report fever or chills. He denies a history of diabetes. He states he has been on prednisone in the past. Patient states that he was admitted to [facility] as above. Strangely review of his past medical records show a recent admission here: The pt is a 45-year-old male with a past medical history of HTN (takes amlodipine and HCTZ at home) and gastritis who presented with c/o abdominal pain with nausea and vomiting for 3 days prior to arrival. He also states he has not had a bowel movement in 2 days. He reports some burning epigastric pain which is associated with nausea and vomiting. Following arrival to ED, he was found to be in AFib RVR and thus cardiology was consulted. Pt was given IV cardizem bolus, HR 115-120s on evaluation, BPs elevated. The patient was admitted with diagnosis of atrial fibrillation with RVR, accelerated hypertension, abdominal pain and nausea and vomiting. Cardiology recommended echocardiogram which showed normal EF and no significant abnormalities. Cardiology recommended Cardizem 240 mg daily. With regards to the abdominal pain patient was found to have nephrolithiasis without hydronephrosis. Therefore, nausea vomiting may be secondary to passed kidney stone versus history of gastritis. No other acute findings. Patient will discharge with Protonix. Follow-up with urology as an outpatient. Dedicated discharge time 35 minutes. Disposition: - TO HOME OR SELFCARE Time spent for discharge: 35 - Discharge Diagnoses (1) Nephrolithiasis Status: Acute (2) Atrial fibrillation with RVR Status: Acute (3) Gastroesophageal reflux disease Status: Acute (4) Nausea and vomiting Status: Acute (5) New onset atrial fibrillation Status: Acute (6) HTN (hypertension) Status: Chronic Qualifiers: Hypertension type: essential hypertension Qualified Code(s): I10 - Essential (primary) hypertension (7) History of gastritis Status: Chronic -: Gradual, days(s) Improves with: medication Worsens with: none Associated Symptoms: denies other symptoms - Related Data Previous Rx's Medication Instructions Recorded Last Taken Type Apixaban [Eliquis] 5 mg PO Q12HR #60 tablet 08/10/20 Unknown Rx Ondansetron (Nf) [Zofran TAB] 8 mg PO Q8HR PRN #12 tablet 08/10/20 Unknown Rx dilTIAZem CD [Cardizem Cd] 240 mg PO QDAY #30 cap 08/10/20 Unknown Rx oxyCODONE /ACETAMINOPHEN [Percocet 1 tab PO Q4HR #10 tab 08/10/20 Unknown Rx 5/325] Albuterol Sulfate [Proventil Hfa] 6.7 gm IH Q4H #1 hfa.aer.ad 09/03/20 Unknown Rx Azithromycin 500 mg PO DAILY #6 tablet 09/03/20 Unknown Rx Pantoprazole [Protonix TAB] 40 mg PO QDAY #30 tablet 09/03/20 Unknown Rx amLODIPine 5 mg PO DAILY #30 tab 09/03/20 Unknown Rx predniSONE [Deltasone] 20 mg PO QDAY #7 tab 09/03/20 Unknown Rx traMADoL [Ultram] 50 mg PO Q6HR PRN #10 tablet 09/03/20 Unknown Rx Allergies Allergy/AdvReac Type Severity Reaction Status Date / Time famotidine [From Pepcid] AdvReac ABD Verified 09/03/20 10:55 CRAMPING metoclopramide HCl AdvReac ABD Verified 09/03/20 10:55 [From Reglan] CRAMPING ranitidine HCl [From Zantac] AdvReac ABD Verified 09/03/20 10:55 CRAMPING ED Review of Systems ROS: Stated complaint: ASTHMA/YANCI Other details as noted in HPI Constitutional: denies: chills, fever Eyes: denies: eye pain, eye discharge, vision change ENT: denies: ear pain, throat pain Respiratory: cough, wheezing Cardiovascular: denies: chest pain, palpitations Endocrine: no symptoms reported Gastrointestinal: denies: abdominal pain, nausea, diarrhea Genitourinary: denies: urgency, dysuria Musculoskeletal: denies: back pain, joint swelling, arthralgia Skin: denies: rash, lesions Neurological: denies: headache, weakness, paresthesias Psychiatric: denies: anxiety, depression Hematological/Lymphatic: denies: easy bleeding, easy bruising ED Past Medical Hx - Past Medical History Hx Hypertension: Yes (NONCOMPLIANT WITH MEDS) Additional medical history: PANCREATITIS GASRTITIS - Surgical History Past Surgical History?: No - Social History Smoking Status: Current Every Day Smoker - Medications Home Medications: Home Medications Medication Instructions Recorded Confirmed Last Taken Type Apixaban [Eliquis] 5 mg PO Q12HR #60 tablet 08/10/20 Unknown Rx Ondansetron (Nf) [Zofran TAB] 8 mg PO Q8HR PRN #12 tablet 08/10/20 Unknown Rx dilTIAZem CD [Cardizem Cd] 240 mg PO QDAY #30 cap 08/10/20 Unknown Rx oxyCODONE /ACETAMINOPHEN [Percocet 1 tab PO Q4HR #10 tab 08/10/20 Unknown Rx 5/325] Albuterol Sulfate [Proventil Hfa] 6.7 gm IH Q4H #1 hfa.aer.ad 09/03/20 Unknown Rx Azithromycin 500 mg PO DAILY #6 tablet 09/03/20 Unknown Rx Pantoprazole [Protonix TAB] 40 mg PO QDAY #30 tablet 09/03/20 Unknown Rx amLODIPine 5 mg PO DAILY #30 tab 09/03/20 Unknown Rx predniSONE [Deltasone] 20 mg PO QDAY #7 tab 09/03/20 Unknown Rx traMADoL [Ultram] 50 mg PO Q6HR PRN #10 tablet 09/03/20 Unknown Rx ED Physical Exam - General Limitations: No Limitations General appearance: alert, in no apparent distress - Head Head exam: Present: atraumatic, normocephalic - Eye Eye exam: Present: normal appearance. Absent: scleral icterus - ENT ENT exam: Present: mucous membranes moist - Neck Neck exam: Present: normal inspection - Respiratory Respiratory exam: Present: wheezes (Bilaterally 1-2+). Absent: respiratory distress, accessory muscle use - Cardiovascular Cardiovascular Exam: Present: regular rate, normal rhythm. Absent: systolic murmur, diastolic murmur, rubs, gallop - GI/Abdominal GI/Abdominal exam: Present: soft, normal bowel sounds. Absent: distended, tenderness, guarding, rebound - Rectal Rectal exam: Present: deferred - Extremities Exam Extremities exam: Present: normal inspection - Back Exam Back exam: Present: normal inspection - Neurological Exam Neurological exam: Present: alert, oriented X3 - Psychiatric Psychiatric exam: Present: normal affect, normal mood - Skin Skin exam: Present: warm, dry, intact, normal color. Absent: rash ED Course Vital Signs 09/03/20 09/03/20 11:00 12:44 Temperature 98.6 F Pulse Rate 75 Respiratory 24 20 Rate Blood Pressure 140/111 [Right] O2 Sat by Pulse 92 Oximetry - Reevaluation(s) Reevaluation #1: Patient admits to medical noncompliance. He admits to not following up with primary care doctor. He now admits to running out of his amlodipine. He asked me why he has not got any medicine for his back pain. However, he admits he never mentioned back pain to me. He is acting in a somewhat hypomanic fashion. In any case, his wheezing has resolved. I repeated his blood pressure myself it is about 140/100. I will renew his amlodipine, place him on a low-dose of prednisone, renew his Ventolin inhaler, placed him on a azithromycin for his bronchitis and prescribe some Ultram for his chronic back pain pain. He states it is in the mid thoracic region. He is neurologically intact. He has some paraspinal discomfort to palpation. He will be referred to primary care. 09/03/20 12:33 09/03/20 12:47 ED Medical Decision Making - Radiology Data Radiology results: image reviewed No acute process Critical care attestation.: If time is entered above; I have spent that time in minutes in the direct care of this critically ill patient, excluding procedure time. ED Disposition Clinical Impression: HTN (hypertension) Qualifiers: Hypertension type: essential hypertension Qualified Code(s): I10 - Essential (primary) hypertension Exacerbation of asthma Qualifiers: Asthma severity: moderate Asthma persistence: persistent Qualified Code(s): J45.41 - Moderate persistent asthma with (acute) exacerbation Back pain Qualifiers: Back pain location: thoracic back pain Chronicity: unspecified Back pain laterality: unspecified Qualified Code(s): M54.6 - Pain in thoracic spine Disposition: DC-01 TO HOME OR SELFCARE Is pt being admited?: No Does the pt Need Aspirin: No Condition: Stable Instructions: Asthma, Adult, How to Use a Metered Dose Inhaler, Chronic Back Pain, Managing Your Hypertension, Hypertension, Adult, Hypertension (ED) Additional Instructions: Follow-up in the primary care setting. Return to the emergency department any acute change or problem. Prescriptions: amLODIPine 5 mg PO DAILY #30 tab Azithromycin 500 mg PO DAILY #6 tablet predniSONE [Deltasone] 20 mg PO QDAY #7 tab Pantoprazole [Protonix TAB] 40 mg PO QDAY #30 tablet Albuterol Sulfate [Proventil Hfa] 6.7 gm IH Q4H #1 hfa.aer.ad traMADoL [Ultram] 50 mg PO Q6HR PRN #10 tablet PRN Reason: Pain Referrals: PRIMARY CARE, [Primary Care Provider] - 3-5 Days [facility] [Provider Group] - 2-3 Days Time of Disposition: 12:43
--- NOTE | 2020-09-03 12:27 | XRay Report ---
CHEST 2 VIEWS INDICATION / CLINICAL INFORMATION: hypertension. COMPARISON: 08/08/2020 FINDINGS: SUPPORT DEVICES: None. HEART / MEDIASTINUM: No significant abnormality. LUNGS / PLEURA: No significant pulmonary or pleural abnormality. No pneumothorax. ADDITIONAL FINDINGS: No significant additional findings. IMPRESSION: 1. No acute findings. Signer Name: Adriano Zuniga MD Signed: 09/03/2020 12:23 PM Workstation Name: [email or web address] [id number]
[2020-09-03] MEDS ORDERED: traMADol 50 MG TAB PO ONE (12:36)
== END 2020-09-03 13:30 | disposition home or self-care (01) ==
LOC: ED 10:44
DX: J45.901 Unspecified asthma with (acute) exacerbation (principal); M54.6 Pain in thoracic spine; I10 Essential (primary) hypertension; F17.200 Nicotine dependence, unspecified, uncomplicated; Z88.8 Allergy status to other drugs, medicaments and biological substances; Z79.899 Other long term (current) drug therapy
CPT/HCPCS: 71046; 82962; 94640; 99284; J7512

== ENCOUNTER 2020-12-24 08:22 | Emergency (ER) | payer SELFPAY ==
[2020-12-24] MEDS ORDERED: ASPIRIN 325 MG TAB PO ONE (08:37)
--- NOTE | 2020-12-24 09:17 | XRay Report ---
CHEST 2 VIEWS INDICATION / CLINICAL INFORMATION: Chest pain and nausea. COMPARISON: 09/03/20. FINDINGS: SUPPORT DEVICES: None. HEART / MEDIASTINUM: The heart size and pulmonary vasculature are normal. The aorta is normal in [place]. LUNGS / PLEURA: No significant pulmonary or pleural abnormality. No pneumothorax. ADDITIONAL FINDINGS: No significant additional findings. IMPRESSION: No acute abnormality or significant change. Signer Name: Rad Bennett MD Signed: 12/24/2020 9:13 AM Workstation Name: [employer]
[2020-12-24] MEDS ORDERED: ONDANSETRON 4 MG ODT TAB PO ONE ×2 (09:28→18:09)
[2020-12-24 09:29] LABS: Basophils # (Auto) 0.1 K/mm3 (0.0-0.1); Basophils % (Auto) 0.7 % (0.0-1.8); Eosinophils # (Auto) 0.1 K/mm3 (0.0-0.4); Eosinophils % (Auto) 0.7 % (0.0-4.3); Hematocrit 50.1 % (35.5-45.6); Hemoglobin 16.6 gm/dl (11.8-15.2); Lymphocytes # (Auto) 2.4 K/mm3 (1.2-5.4); Lymphocytes % (Auto) 26.8 % (13.4-35.0); Mean Corpuscular HGB Conc 33 % (32-34); Mean Corpuscular Volume 92 fl (84-94); Monocytes # (Auto) 0.6 K/mm3 (0.0-0.8); Monocytes % (Auto) 6.5 % (0.0-7.3); Platelet Count 220 K/mm3 (140-440); Red Blood Count 5.44 M/mm3 (3.65-5.03); Red Cell Distribution Width 13.8 % (13.2-15.2)
[2020-12-24 09:51] LABS: Alanine Aminotransferase 16 units/L (7-56); Albumin 4.7 g/dL (3.9-5); BUN/Creatinine Ratio 14; Blood Urea Nitrogen 15 mg/dL (9-20); Hemolysis Index 7
--- NOTE | 2020-12-24 10:45 | Electrocardiograph Report ---
[facility] Test Date: 2020-12-24 Test Time: 08:30:31 Pat Name: KRISTA GLASS Department: Room: Gender: M [employer]: [place] : 1975 Requested By: ED DOC Order Number: [id number] Reading MD: Yvonne Billings Measurements Intervals [place] Rate: 108 P: 83 AL: 119 QRS: 46 QRSD: 74 T: 71 QT: 330 QTc: 443 Interpretive Statements Sinus tachycardia Right atrial enlargement Consider left ventricular hypertrophy No previous ECG available for comparison Electronically Signed On 12-24-2020 10:45:11 EDT by Yvonne Billings
[2020-12-24] MEDS ORDERED: ALUM-MAG HYDROXIDE-SIMETHICONE 200-200-20MG/5ML ORAL LIQD 30 ML PO ONE (16:54)
[2020-12-24] MEDS ORDERED: LIDOCAINE VISCOUS 2% 15 ML ORAL LIQD PO ONE (16:54)
[2020-12-24] MEDS ORDERED: oxyCODONE /ACETAMINOPHEN 5-325MG TAB PO ONE (16:54)
[2020-12-24] MEDS ORDERED: PANTOPRAZOLE 40 MG INJ IV ONE (17:07)
[2020-12-24] MEDS ORDERED: MORPHINE 4 MG/1 ML INJ IV ONE (17:07)
[2020-12-24] MEDS ORDERED: ONDANSETRON 4 MG/2 ML INJ IV ONE (17:07)
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
[2020-12-24] MEDS ORDERED: MORPHINE 4 MG/1 ML INJ IM ONE (18:09)
--- NOTE | 2020-12-24 19:38 | Cat Scan Report ---
CT ABDOMEN AND PELVIS WITHOUT CONTRAST HISTORY: abdominal pain hx of pancreatitis. COMPARISON: None. TECHNIQUE: CT images of the abdomen and pelvis were obtained without administration of intravenous co ntrast. All CT scans at this location are performed using CT dose reduction for ALARA by means of au tomated exposure control. FINDINGS: Lungs/bones: Lung bases appear normal Abdomen/pelvis: Within limits of a noncontrast exam the liver, spleen, adrenal glands, gallbladder a nd upper GI tract appear normal. Pancreas appears normal. No inflammatory change and upper abdomen. T here is a nonobstructing calcification within the right kidney measures 6 mm. 3 mm nonobstructing shira cification in the left kidney. No hydronephrosis. The appendix appears normal. No free fluid is seen in the abdomen or pelvis. No dominant adenopathy is seen. Urinary bladder appears normal. Degenerativ e changes seen throughout spine. IMPRESSION: 1. Bilateral nephrolithiasis. Signer Name: Adriano Zuniga MD Signed: 12/24/2020 7:33 PM Workstation Name: [id number]
--- NOTE | 2020-12-24 19:41 | Cat Scan Report ---
CT CHEST WITHOUT CONTRAST INDICATION / CLINICAL INFORMATION: thoracic back pain. TECHNIQUE: Axial CT images were obtained through the chest without contrast. All CT scans at this location are p erformed using CT dose reduction for ALARA by means of automated exposure control. COMPARISON: None available. FINDINGS: No focal consolidation, pleural effusion or pneumothorax. No mediastinal or hilar adenopathy. The asc ending aorta is prominent measuring 4.1 cm. Nonobstructing left renal stones are seen. IMPRESSION: 1. Ascending thoracic aortic aneurysm measuring 4.1 cm. 2. Nonobstructing left renal stones. Signer Name: Adriano Zuniga MD Signed: 12/24/2020 7:36 PM Workstation Name: [id number]
[2020-12-24 21:08] VITALS: BP 152/98
== END 2020-12-24 21:07 | disposition home or self-care (01) ==
LOC: ED 08:22
DX: I71.2 Thoracic aortic aneurysm, without rupture (principal); K21.9 Gastro-esophageal reflux disease without esophagitis; K29.70 Gastritis, unspecified, without bleeding; I48.91 Unspecified atrial fibrillation; I10 Essential (primary) hypertension; F17.200 Nicotine dependence, unspecified, uncomplicated; F12.90 Cannabis use, unspecified, uncomplicated; Z88.8 Allergy status to other drugs, medicaments and biological substances; Z79.899 Other long term (current) drug therapy; Z79.01 Long term (current) use of anticoagulants
CPT/HCPCS: 36415; 71046; 71250; 74176; 80053; 83690; 84484; 85025; 93005; 96372; 99284; J2270; Q0162

== ENCOUNTER 2021-04-22 18:24 | Emergency (ER) | payer SELFPAY ==
[2021-04-22 18:58] VITALS: BP 137/91
[2021-04-22] MEDS ORDERED: ACETAMINOPHEN 500 MG TAB PO STA (19:10)
== END 2021-04-22 19:40 | disposition left against medical advice (07) ==
LOC: ED 18:24
DX: R11.0 Nausea (principal); R06.02 Shortness of breath; Z53.21 Procedure and treatment not carried out due to patient leaving prior to being seen by health care provider